=== PATIENT | male | born 1975 | race Caucasian/White ===

== ENCOUNTER 2024-06-01 06:31 | Day surgery (SDC) | payer OTHER ==
[2024-05-30 16:35] VITALS: BMI 31.3
[2024-06-01] MEDS ORDERED: BUPIVACAINE HCL/PF 0.5% (5MG/ML) 10 ML VIAL ONE (08:03)
[2024-06-01] MEDS ORDERED: ROCURONIUM BROMIDE 50 MG/5 ML VIAL ONE (08:15)
[2024-06-01] MEDS ORDERED: PROPOFOL 40 ML ONE (08:15)
[2024-06-01] MEDS ORDERED: SUCCINYLCHOLINE CHLORIDE 200 MG/10 ML SYRINGE ONE (08:15)
[2024-06-01] MEDS ORDERED: LIDOCAINE HCL/PF 2% SDV 5ML VIAL ONE (08:17)
[2024-06-01] MEDS ORDERED: MIDAZOLAM HCL 2 MG/2 ML SINGLE DOSE VIAL ONE (08:17)
[2024-06-01] MEDS: ceFAZolin SODIUM 1 GM VIAL IVPB ONE (08:47)
[2024-06-01] MEDS ORDERED: ONDANSETRON 4 MG/2 ML VIAL ONE (08:51)
[2024-06-01] MEDS: BUPIVACAINE HCL/PF 0.5% (5MG/ML) 10 ML VIAL IJ ONE ×2 (08:53)
[2024-06-01] MEDS ORDERED: ONDANSETRON 4 MG/2 ML VIAL IVPUSH PRN (10:08)
[2024-06-01] MEDS ORDERED: LACTATED RINGERS SOLUTION 1,000 ML IV SCH (10:15)
[2024-06-01] MEDS: ACETAMINOPHEN 1000 MG/100 ML BAG IVPB ONE (11:33)
[2024-06-01 11:58] VITALS: TEMP 98.1
[2024-06-01] MEDS: HYDROmorphone HCL 2 MG TABLET PO ONE (13:36)
[2024-06-01 14:13] VITALS: BP 158/74; PULSE 69; RESP 20
== END 2024-06-01 14:35 | disposition home or self-care (01) ==
LOC: JASU-SURG 06:31 → EDBD 10:00 → JASU-SURG 14:35
PROVIDERS: ATTEND Surgery
PROC: 0WHG43Z Insertion of Infusion Device into Peritoneal Cavity, Percutaneous Endoscopic Approach (ICD-10-PCS; 2024-06-01)
PROC: 0WUF4JZ Supplement Abdominal Wall with Synthetic Substitute, Percutaneous Endoscopic Approach (ICD-10-PCS; principal; 2024-06-01 08:30)
DX: I12.0 Hypertensive chronic kidney disease with stage 5 chronic kidney disease or end stage renal disease (principal); N18.6 End stage renal disease; N17.9 Acute kidney failure, unspecified; Z99.2 Dependence on renal dialysis; K42.9 Umbilical hernia without obstruction or gangrene
CPT/HCPCS: 36415; 82962; 84132; 94760; C1750; C1781; J0131; J1644